=== PATIENT | male | born 1965 | race Caucasian/White ===

== ENCOUNTER 2019-11-12 14:21 | Observation (INO) | payer BC ==
[2019-11-12] VITALS (8 sets, daily range): BP systolic 110–138; BP diastolic 65–90; PULSE 72–81; TEMP 98.2–98.5
[~2019-11-12] VITALS: Ht 165.1 cm; Wt 103.6 kg
--- NOTE | 2019-11-12 17:09 | NUR ---
PT HEADING DOWN FOR SURGERY AT THIS TIME.
--- NOTE | 2019-11-12 19:40 | NUR ---
PT RETURNED FROM PACU. REPORT RECIEVED FROM JYOTSNA CHAPMAN. PT STABLE. A&O X4. FAMILY AT BEDSIDE. VERY SUPPORTIVE. VSS. AX3 LAP BANDAIDS CDI. PT DENIES PAIN AT THIS TIME. PT TOLERATING PO FLUIDS WELL. GAVE JELLO. PT REPORTS UNABLE TO TAKE HYDROCODONE D/T NAUSEA AND VOIMTING. PLACED HOLD ON THIS MED FOR NOW. CALL LIGHT IN REACH. STAYING WITH PATIENT THROUGH THE NIGHT.
--- NOTE | 2019-11-12 21:15 | NUR ---
PT RESTING. WATCHING TV. NO COMPLAINTS
--- NOTE | 2019-11-13 00:30 | NUR ---
PT SLEEPING. NO DISTRESS.
[2019-11-13 04:33] VITALS: BP 96/65; PULSE 61; TEMP 97.4
--- NOTE | 2019-11-13 06:31 | NUR ---
PT HAS HAD A RESTFUL NIGHT. ABD BANDAIDS HAS SMALL AMT SHADOWING. PT DENIES NEED FOR PAIN MED. PT HAS VOIDED X2 THIS SHIFT.
[2019-11-13 08:19] LABS: HEMATOCRIT 42.4 % (42.0-52.0); HEMOGLOBIN 14.6 g/dl (13.5-18.0); MEAN CELL VOLUME 88 fl (80.0-100.0); MEAN CORPUSCULAR HEMOGLOBIN 30 pg (27.0-31.0); MEAN CORPUSCULAR HGB CONC 34 g/dl (33.0-37.0); MEAN PLATELET VOLUME 9.1 fl (7.4-10.4); PLATELET COUNT 348 K/mm3 (130-400); RED BLOOD COUNT 4.82 M/mm3 (4.20-5.60); REDCELL DISTRIBUTION WIDTH-CV 12.8 % (11.5-14.5)
[2019-11-13 08:28] VITALS: BP 133/76; PULSE 60; TEMP 97.7
[2019-11-13 09:00] LABS: BAND 9 % (0-10); LYMPHOCYTE 8 % (20.0-51.0); NEUTROPHILS 82 % (42.0-75.2); PLATELET ESTIMATE NORMAL (NORMAL)
[2019-11-13 12:30] VITALS: BP 134/76; PULSE 69; TEMP 98.1
[2019-11-13 16:30] VITALS: BP 122/78; PULSE 72; TEMP 98
[2019-11-13] MEDS ORDERED: ULTRAM 50MG TAB50 MG PO (17:08)
--- NOTE | 2019-11-13 17:46 | NUR ---
DISCHARGE EDUCATION PROVIDED TO PT. IV REMOVED, SITE BLED, APPLIED SOME COBAN. NO QUESTIONS VOICED. THIS NURSE ESCORTED PT BALJIT.
== END 2019-11-13 17:00 | disposition home or self-care (01) ==
LOC: MEDICAL 14:21
PROVIDERS: ADMIT Surgery
DX: K35.891 Other acute appendicitis without perforation, with gangrene (principal); F17.220 Nicotine dependence, chewing tobacco, uncomplicated; I10 Essential (primary) hypertension; M19.90 Unspecified osteoarthritis, unspecified site; Z79.82 Long term (current) use of aspirin
CPT/HCPCS: G0378; J1100; J1170; J2405; J2543; J2704; J3010